=== PATIENT | female | born 1985 | race African-American/Black ===

== ENCOUNTER 2017-06-02 16:56 | Emergency (ER) | payer MEDICAID ==
[2017-06-02] MEDS ORDERED: ONDANSETRON HCL INJ/PF 4 MG/2 ML SDV IV ONE ×2 (17:08→17:16)
[2017-06-02] MEDS ORDERED: HYDROMORPHONE HCL INJ/PF 2 MG/ML AMPULE IV ONE ×3 (17:08→17:36)
[2017-06-02] MEDS ORDERED: HYDROMORPHONE HCL INJ/PF 2 MG/ML AMPULE ONE (17:12)
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
[2017-06-02] MEDS ORDERED: NORMAL SALINE 1000 ML 1,000 ML IV ONE (18:42)
[2017-06-02] MEDS ORDERED: FENTANYL 100 MCG/HR PATCH.TD72 TD ONE (18:44)
[2017-06-02] MEDS ORDERED: ONDANSETRON ODT 4 MG TAB (6 TAB/DSPK) PO PRN (21:07)
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
[2017-06-02 21:25] VITALS: BP 125/71
== END 2017-06-02 21:36 | disposition short-term general hospital (02) ==
LOC: ER 16:56
DX: T23.202A Burn of second degree of left hand, unspecified site, initial encounter (principal); T23.232A Burn of second degree of multiple left fingers (nail), not including thumb, initial encounter; T23.212A Burn of second degree of left thumb (nail), initial encounter; R11.0 Nausea; T31.11 Burns involving 10-19% of body surface with 10-19% third degree burns; X10.2XXA Contact with fats and cooking oils, initial encounter; Y93.G3 Activity, cooking and baking; Y92.000 Kitchen of unspecified non-institutional (private) residence as the place of occurrence of the external cause
CPT/HCPCS: 99285; 96374; 96375; 36415; 84703; J1170; J3490; J2405

== ENCOUNTER 2017-08-07 17:35 | Emergency (ER) | payer SELFPAY ==
--- NOTE | 2017-08-07 17:59 | ER Document Report ---
ED Medical Screen (RME) - General Chief Complaint: Abdominal Pain Stated Complaint: ABDOMINAL PAIN Time Seen by Provider: 08/07/17 17:55 Mode of Arrival: Ambulatory Information source: Patient Notes: 32 yo female c/o suprapubic abdominal pain onset saturday that has radiated into the right flank. No fever, n/v/d. No dysuria, but has frequency since saturday. No hematuria. No hx kidney stones. No vaginal discharge. No dyspareunia. Worse when supine, right side or prone. no hx endometriosis. Hx ovarian cyst. LMP : 06-01. Takes OC's, none missed. TRAVEL OUTSIDE OF THE [place] IN LAST 30 DAYS: No - Related Data Allergies/Adverse Reactions: codeine [Codeine] Allergy (Verified 08/07/17 17:35) VOMITING, rash Past Medical History - Past Medical History Cardiac Medical History: Denies: Hx Pulmonary Embolism Pulmonary Medical History: Reports: Hx Asthma - albuterol Denies: Hx Sleep Apnea, Hx Tuberculosis Renal/ Medical History: Denies: Hx Kidney Stones, Hx Ovarian Cysts, Hx Peritoneal Dialysis, Hx Pelvic Inflammatory Disease Malignancy Medical History: Denies: Hx Breast Cancer, Hx Cervical Cancer, Hx Ovarian Cancer GI Medical History: Reports: Hx Gastroesophageal Reflux Disease - with . Denies: Hx Hiatal Hernia, Hx Ulcer Past Surgical History: Reports: Hx Tonsillectomy - Immunizations Hx Diphtheria, Pertussis, Tetanus Vaccination: Yes Physical Exam - Vital signs Vitals: Temp Pulse Resp BP Pulse Ox 97.9 F 81 17 124/75 100 08/07/17 17:45 08/07/17 17:45 08/07/17 17:45 08/07/17 17:45 08/07/17 17:45 Course - Vital Signs Vital signs: Temp Pulse Resp BP Pulse Ox 97.9 F 81 17 124/75 100 08/07/17 17:45 08/07/17 17:45 08/07/17 17:45 08/07/17 17:45 08/07/17 17:45
[2017-08-07 19:00] LABS: APPEARANCE,URINE SLIGHTLY-CLOUDY; BILIRUBIN,URINE NEGATIVE (NEGATIVE); COLOR,URINE YELLOW; GLUCOSE, URINE NEGATIVE (NEGATIVE); KETONES,URINE NEGATIVE (NEGATIVE); LEUKOCYTE ESTERASE,URINE NEGATIVE (NEGATIVE); NITRITE,URINE NEGATIVE (NEGATIVE); PROTEIN,URINE NEGATIVE (NEGATIVE); URINE SPECIFIC GRAVITY 1.014; UROBILINOGEN,URINE NEGATIVE mg/dL (<2.0)
[2017-08-07 19:02] LABS: ABSOLUTE EOSINOPHILS # (AUTO) 0.1 10^3/uL (0.0-0.6); ABSOLUTE LYMPHOCYTES (AUTO) 3.6 10^3/uL (0.5-4.7); ABSOLUTE MONOCYTES (AUTO) 0.7 10^3/uL (0.1-1.4); ABSOLUTE NEUT (AUTO) 4.2 10^3/uL (1.7-8.2); BASOPHILS % (AUTO) 0.4 % (0-2); HEMATOCRIT 36.9 % (36.0-47.0); HEMOGLOBIN 12.3 g/dL (12.0-15.5); LYMPHOCYTES % (AUTO) 41.6 % (13-45); MEAN CORPUSCULAR HEMOGLOBIN 27.6 pg (27.0-33.4); MEAN CORPUSCULAR HGB CONC 33.2 g/dL (32.0-36.0); MEAN CORPUSCULAR VOLUME 83 fl (80-97); MONOCYTES % (AUTO) 8.1 % (3-13); PLATELET COUNT 286 10^3/uL (150-450); RED BLOOD COUNT 4.45 10^6/uL (3.72-5.28); RED CELL DISTRIBUTION WIDTH 13.3 % (11.5-14.0); SEGMENTED NEUTROPHILS % (AUTO) 48.9 % (42-78); TOTAL CELLS COUNTED % (AUTO) 100 %; WHITE BLOOD COUNT 8.6 10^3/uL (4.0-10.5)
[2017-08-07 19:07] LABS: ALANINE AMINOTRANSFERASE 20 U/L (9-52); ALBUMIN 3.9 g/dL (3.5-5.0); ALKALINE PHOSPHATASE 64 U/L (38-126); ANION GAP 8 (5-19); ASPARTATE AMINO TRANSFERASE 15 U/L (14-36); BILIRUBIN,DIRECT 0.2 mg/dL (0.0-0.4); BILIRUBIN,TOTAL 0.3 mg/dL (0.2-1.3); BLOOD UREA NITROGEN 15 mg/dL (7-20); CALCIUM 9.8 mg/dL (8.4-10.2); CARBON DIOXIDE 26 mmol/L (22-30); CHLORIDE 104 mmol/L (98-107); GLUCOSE 100 mg/dL (75-110); SODIUM 137.9 mmol/L (137-145); TOTAL PROTEIN 6.5 g/dL (6.3-8.2)
--- NOTE | 2017-08-07 21:24 | ER Document Report ---
ED General - General Chief Complaint: Abdominal Pain Stated Complaint: ABDOMINAL PAIN Time Seen by Provider: 08/07/17 17:55 Mode of Arrival: Ambulatory Notes: 32-year-old female in no acute distress presents to the emergency department with a worsening 3 day history of abdominal pain. Abdominal pain started around the umbilicus and now has migrated to the right lower quadrant. No nausea. No vomiting. No fever. No anorexia. No change in bowel patterns. Denies any vaginal discharge. No change in sexual partners. TRAVEL OUTSIDE OF THE [place] IN LAST 30 DAYS: No - HPI Onset: Other - 3 days ago Onset/Duration: Gradual Severity: Moderate Pain Level: 3 Associated symptoms: denies: Diarrhea, Nausea, Vomiting - Related Data Allergies/Adverse Reactions: codeine [Codeine] Allergy (Verified 08/07/17 17:35) VOMITING, rash Past Medical History - General Information source: Patient - Social History Smoking Status: Never Smoker Chew tobacco use (# tins/day): No Frequency of alcohol use: None Drug Abuse: None Lives with: Family Family History: Reviewed & Not Pertinent Patient has suicidal ideation: No Patient has homicidal ideation: No - Past Medical History Cardiac Medical History: Denies: Hx Pulmonary Embolism Pulmonary Medical History: Reports: Hx Asthma - albuterol Denies: Hx Sleep Apnea, Hx Tuberculosis Renal/ Medical History: Denies: Hx Kidney Stones, Hx Ovarian Cysts, Hx Peritoneal Dialysis, Hx Pelvic Inflammatory Disease Malignancy Medical History: Denies: Hx Breast Cancer, Hx Cervical Cancer, Hx Ovarian Cancer GI Medical History: Reports: Hx Gastroesophageal Reflux Disease - with . Denies: Hx Hiatal Hernia, Hx Ulcer Past Surgical History: Reports: Hx Tonsillectomy - Immunizations Hx Diphtheria, Pertussis, Tetanus Vaccination: Yes Hx Pneumococcal Vaccination: 04/23/13 Review of Systems - Review of Systems Constitutional: denies: Fever, Malaise, Weakness, Weight gain, Weight loss EENT: denies: Eye pain, Double vision, Nose congestion, Nose discharge Cardiovascular: denies: Chest pain, Palpitations, Heart racing, Syncope, Dizziness, Lightheaded Respiratory: denies: Cough, Short of breath, Sputum, Wheezing Gastrointestinal: Abdominal pain. denies: Diarrhea, Nausea, Vomiting Genitourinary: denies: Burning, Dysuria, Discharge, Frequency, Hematuria, Urgency Female Genitourinary: Last menstrual period - Last menstrual period was on 30 July Musculoskeletal: denies: Back pain, Joint pain, Muscle pain, Muscle stiffness Skin: denies: Change in color, Dryness, Lumps, Rash Hematologic/Lymphatic: denies: Anemia, Blood clots, Easy bleeding, Easy bruising Neurological/Psychological: No symptoms reported Physical Exam - Vital signs Vitals: Temp Pulse Resp BP Pulse Ox 97.9 F 81 17 124/75 100 08/07/17 17:45 08/07/17 17:45 08/07/17 17:45 08/07/17 17:45 08/07/17 17:45 Interpretation: Normal - General General appearance: Appears well, Alert - HEENT Head: Normocephalic, Atraumatic Eyes: Normal Pupils: PERRL - Respiratory Respiratory status: No respiratory distress Chest status: Nontender Breath sounds: Normal Chest palpation: Normal - Cardiovascular Rhythm: Regular Heart sounds: Normal auscultation Murmur: No - Abdominal Inspection: Normal Distension: No distension Bowel sounds: Normal Tenderness: Tender - Tenderness to palpation right lower quadrant. No rebound Organomegaly: No organomegaly - Back Back: Normal, Nontender - Extremities General upper extremity: Normal inspection, Nontender, Normal color, Normal ROM , Normal temperature General lower extremity: Normal inspection, Nontender, Normal color, Normal ROM , Normal temperature, Normal weight bearing. No: Alejandra's sign - Neurological Neuro grossly intact: Yes Cognition: Normal Orientation: AAOx4 Stan[place] Coma Scale Eye Opening: Spontaneous [place] Coma Scale Verbal: Oriented [place] Coma Scale Motor: Obeys Commands Stanfield Coma Scale Total: 15 Speech: Normal Motor strength normal: LUE, RUE, LLE, RLE Sensory: Normal - Psychological Associated symptoms: Normal affect, Normal mood - Skin Skin Temperature: Warm Skin Moisture: Dry Skin Color: Normal Course - Re-evaluation Re-evalutation: 08/07/17 22:13 Due to the fact the patient has had a migratory right lower quadrant pain beginning at the umbilicus will do CT scan to rule out appendicitis at this time. Patient is not requesting anything for pain. 08/07/17 23:09 CT scan is complete. Patient not getting ultrasound. Patient still resting comfortably in no significant distress. 08/08/17 00:10 Laboratory 08/07/17 08/07/17 08/07/17 18:34 18:34 18:34 WBC 8.6 RBC 4.45 Hgb 12.3 Hct 36.9 MCV 83 MCH 27.6 MCHC 33.2 RDW 13.3 Plt Count 286 Seg Neutrophils % 48.9 Lymphocytes % 41.6 Monocytes % 8.1 Eosinophils % 1.0 Basophils % 0.4 Absolute Neutrophils 4.2 Absolute Lymphocytes 3.6 Absolute Monocytes 0.7 Absolute Eosinophils 0.1 Absolute Basophils 0.0 Sodium 137.9 Potassium 4.0 Chloride 104 Carbon Dioxide 26 Anion Gap 8 BUN 15 Creatinine 0.68 Est GFR ( Amer) > 60 Est GFR (Non-Af Amer) > 60 Glucose 100 Calcium 9.8 Total Bilirubin 0.3 Direct Bilirubin 0.2 Neonat Total Bilirubin Not Reportable Neonat Direct Bilirubin Not Reportable Neonat Indirect Bili Not Reportable AST 15 ALT 20 Alkaline Phosphatase 64 Total Protein 6.5 Albumin 3.9 Urine Color YELLOW Urine Appearance SLIGHTLY-CLOUDY Urine pH 6.0 Ur Specific Hope 1.014 Urine Protein NEGATIVE Urine Glucose (UA) NEGATIVE Urine Ketones NEGATIVE Urine Blood MODERATE H Urine Nitrite NEGATIVE Urine Bilirubin NEGATIVE Urine Urobilinogen NEGATIVE Ur Leukocyte Esterase NEGATIVE Urine RBC (Auto) 9 Squamous Epi Cells Auto 3 Urine Mucus (Auto) RARE Urine Ascorbic Acid NEGATIVE Urine HCG, Qual NEGATIVE Abdomen/Pelvis CT 08/07/17 00:00 IMPRESSION: Normal appendix. Proliferative appearance of the endometrium. 1.6 cm right ovarian cyst. Trace pelvic free fluid. Multiple left renal upper pole calyceal stones. No ureteral stone. No hydronephrosis or hydroureter. Transvaginal US 08/07/17 22:38 IMPRESSION: 2.2 cm right ovarian cyst with small adjacent free fluid. The skin with a normal appendix. Patient has a 2.2 cm right ovarian cyst with a small amount of adjacent free fluid but with no evidence of torsion. Patient is actually very comfortable at this time. Will advise that she follow up with a [facility]. Follow-up information provided. Return if symptoms get worse. - Vital Signs Vital signs: Temp Pulse Resp BP Pulse Ox 97.9 F 81 17 124/75 100 08/07/17 17:45 08/07/17 17:45 08/07/17 17:45 08/07/17 17:45 08/07/17 17:45 - Laboratory Result Diagrams: 08/07/17 18:34 08/07/17 18:34 Laboratory results interpreted by me: 08/07/17 18:34 Urine Blood MODERATE H Discharge - Discharge Clinical Impression: Right ovarian cyst Condition: Good Disposition: HOME, SELF-CARE Instructions: Abdominal Pain ([facility]), Ovarian Cyst ([facility]) Additional Instructions: Symptoms are getting worse or no better in the next 24 hours please return for repeat evaluation or follow-up with your regular doctor. Prescriptions: Ibuprofen [Motrin 600 Mg Tablet] 600 mg PO TID 5 Days #15 tablet Referrals: MARIELLA FERNÁNDEZ MD [Primary Care Provider] - Follow up as needed
[2017-08-07] MEDS ORDERED: KETOROLAC TROMETHAMINE INJ/PF 30 MG/1 ML SDV IV ONE (23:50)
--- NOTE | 2017-08-07 23:52 | RADIOLOGY REPORT (SQ) ---
EXAM DESCRIPTION: CT ABD/PELVIS WITH IV ORAL COMPLETED DATE/TIME: 08/07/2017 11:03 pm REASON FOR STUDY: RLQ pain COMPARISON: None. TECHNIQUE: CT scan of the abdomen and pelvis performed using helical scanning technique with dynamic intravenous contrast injection. No oral contrast. Images reviewed with lung, soft tissue, and bone windows. Reconstructed coronal and sagittal MPR images reviewed. Delayed images for evaluation of the urinary system also acquired. All images stored on PACS. All CT scanners at this facility use dose modulation, iterative reconstruction, and/or weight based d osing when appropriate to reduce radiation dose to as low as reasonably achievable (ALARA). [facility]: Dose Right [facility]: CareDose [facility]: Dose Right [facility]: Teradose 4D [facility]: YouHelp CONTRAST TYPE AND DOSE: contrast/concentration: Isovue 370.00 mg/ml; Total Contrast Delivered: 100.0 ml; Total Saline Delivered: 40.0 ml RENAL FUNCTION: None required. The patient is less than 50 years old. RADIATION DOSE: CT Rad equipment meets quality standard of care and radiation dose reduction techniq ues were employed. CTDIvol: 19.5 - 19.5 mGy. DLP: 2148 mGy-cm.. LIMITATIONS: None. FINDINGS: LOWER CHEST: No significant findings. No nodules or infiltrates. LIVER: Normal size. No masses. No dilated ducts. SPLEEN: Normal size. No focal lesions. PANCREAS: No masses. No significant calcifications. No adjacent inflammation or peripancreatic fluid collections. Pancreatic duct not dilated. GALLBLADDER: No identified stones by CT criteria. No inflammatory changes to suggest cholecystitis. ADRENAL GLANDS: No significant masses or asymmetry. RIGHT KIDNEY AND URETER: No solid masses. No significant calcifications. No hydronephrosis or hyd roureter. LEFT KIDNEY AND URETER: No solid masses. Multiple left upper pole calyceal stones. No ureteral sto ne. No hydronephrosis or hydroureter. AORTA AND VESSELS: No aneurysm. No dissection. Renal arteries, SMA, celiac without stenosis. RETROPERITONEUM: No retroperitoneal adenopathy, hemorrhage or masses. BOWEL AND PERITONEAL CAVITY: No masses or inflammatory changes. No free fluid or peritoneal masses. APPENDIX: Normal. PELVIS: Proliferative appearance of the endometrium. 1.6 cm right ovarian cyst. Trace pelvic free f luid. Normal bladder. ABDOMINAL WALL: No masses. No hernias. BONES: No significant or acute findings. OTHER: No other significant finding. IMPRESSION: Normal appendix. Proliferative appearance of the endometrium. 1.6 cm right ovarian cys t. Trace pelvic free fluid. Multiple left renal upper pole calyceal stones. No ureteral stone. No hydronephrosis or hydroureter. TECHNICAL DOCUMENTATION: JOB ID: [id number] [place]-72 Quality ID # [id number]: Final reports with documentation of one or more dose reduction techniques (e.g., Au tomated exposure control, adjustment of the mA and/or kV according to patient size, use of iterative reconstruction technique) 2010 [employer]- All Rights Reserved
--- NOTE | 2017-08-07 23:59 | RADIOLOGY REPORT (SQ) ---
EXAM DESCRIPTION: U/S NON OB PEL TV W/DOPPLER COMPLETED DATE/TIME: 08/07/2017 11:30 pm REASON FOR STUDY: rlq pain COMPARISON: None. TECHNIQUE: Dynamic and static grayscale images acquired of the pelvis via transvaginal approach and recorded on PACS. Additional selected color Doppler and spectral images recorded. LIMITATIONS: None. FINDINGS: UTERUS: Contour normal. 1 cm right lower body fibroid. ENDOMETRIAL STRIPE: No focal or generalized thickening. No masses. CERVIX: No nabothian cysts. RIGHT OVARY: 2.2 cm right ovarian cyst with small adjacent free fluid. RIGHT OVARY DOPPLER: Normal arterial vascular flow without evidence for torsion. LEFT OVARY: No abnormal masses. LEFT OVARY DOPPLER: Normal arterial vascular flow without evidence for torsion. FREE FLUID: None noted. OTHER: No other significant finding. MEASUREMENTS: UTERUS: 8.5 x 6.5 x 5.2 cm ENDOMETRIAL STRIPE: 10 mm RIGHT OVARY: 3.5 x 2.3 x 1.8 cm LEFT OVARY: 2.8 x 2.2 x 1.6 cm IMPRESSION: 2.2 cm right ovarian cyst with small adjacent free fluid. TECHNICAL DOCUMENTATION: JOB ID: [id number] [place]-72 2010 [employer]- All Rights Reserved
[2017-08-08 00:37] VITALS: BP 125/78
== END 2017-08-08 00:32 | disposition home or self-care (01) ==
LOC: ER 17:35
DX: N83.201 Unspecified ovarian cyst, right side (principal); N20.0 Calculus of kidney; R10.31 Right lower quadrant pain; Z88.5 Allergy status to narcotic agent; J45.909 Unspecified asthma, uncomplicated
CPT/HCPCS: 99284; 96374; 36415; 87086; 85025; 81025; 87088; 80053; 81001; 76830; 93976; 74177; J1885

== ENCOUNTER 2019-05-06 22:23 | Emergency (ER) | payer OTHER ==
[2019-05-06 22:35] VITALS: BP 128/79
[2019-05-06] MEDS ORDERED: IBUPROFEN 800 MG TABLET PO ONE (23:06)
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
--- NOTE | 2019-05-06 23:47 | RADIOLOGY REPORT (SQ) ---
EXAM DESCRIPTION: XR WRIST 3 OR MORE VIEWS, XR HAND 3 OR MORE VIEWS CLINICAL INDICATION: 34-year-old female with pain without injury. TECHNIQUE: Three views LEFT hand were obtained in AP, lateral and oblique projections. Three views LEFT wrist were obtained in AP, lateral and oblique projections. COMPARISON: None. FINDINGS: LEFT hand: There is no fracture or dislocation. The joint spaces are preserved. No soft tissue abnormalities are seen. LEFT wrist: There is no fracture or dislocation. The joint spaces are preserved. No soft tissue abnormalities are seen. IMPRESSION: No acute radiographic abnormality.
[2019-05-07] MEDS ORDERED: OXYCODONE-ACETAMINOPHEN 5-325 MG TABLET PO ONE (01:45)
--- NOTE | 2019-05-07 01:51 | ER Document Report ---
ED General - General Chief Complaint: Hand Pain Stated Complaint: LEFT HAND/SHOULDER PAIN Time Seen by Provider: 05/06/19 23:06 Primary Care Provider: MARIELLA FERNÁNDEZ MD [Primary Care Provider] - Follow up as needed Mode of Arrival: Ambulatory TRAVEL OUTSIDE OF THE [place] IN LAST 30 DAYS: No - HPI Notes: Patient is a 32-year-old female who presents emergency department for evaluation of pain in her left hand and wrist. Started yesterday. Is progressed up to now where it hurts all the way up into her shoulder and neck. She denies any associated shortness of breath, nausea, diaphoresis, near syncope. Is worsened by movement, nothing seems to make it better. She states she is just here because she was concerned she could be having a heart attack. She states that she noted that her fingertips on the index and middle fingers yesterday went numb, but they have not been that way since. - Related Data Allergies/Adverse Reactions: codeine [Codeine] Allergy (Verified 05/06/19 23:03) VOMITING, rash Past Medical History - General Information source: Patient - Social History Smoking Status: Never Smoker Frequency of alcohol use: Rare Drug Abuse: None Family History: Reviewed & Not Pertinent Patient has suicidal ideation: No Patient has homicidal ideation: No - Past Medical History Cardiac Medical History: Denies: Hx Pulmonary Embolism Pulmonary Medical History: Reports: Hx Asthma - albuterol Denies: Hx Sleep Apnea, Hx Tuberculosis Renal/ Medical History: Denies: Hx Kidney Stones, Hx Ovarian Cysts, Hx Peritoneal Dialysis, Hx Pelvic Inflammatory Disease Malignancy Medical History: Denies: Hx Breast Cancer, Hx Cervical Cancer, Hx Ovarian Cancer GI Medical History: Reports: Hx Gastroesophageal Reflux Disease - with p regnancy. Denies: Hx Hiatal Hernia, Hx Ulcer Past Surgical History: Reports: Hx Section, Hx Tonsillectomy, Other - Skin graft left hand - Immunizations Hx Diphtheria, Pertussis, Tetanus Vaccination: Yes Hx Pneumococcal Vaccination: 04/23/13 Review of Systems - Review of Systems Constitutional: No symptoms reported EENT: No symptoms reported Cardiovascular: No symptoms reported Respiratory: No symptoms reported Gastrointestinal: No symptoms reported Genitourinary: No symptoms reported Musculoskeletal: See HPI Skin: No symptoms reported Neurological/Psychological: No symptoms reported Physical Exam - Vital signs Vitals: Temp Pulse Resp BP Pulse Ox 97.7 F 92 18 128/79 H 100 10/23/19 22:34 05/06/19 22:34 05/06/19 22:34 05/06/19 22:34 05/06/19 22:34 - Notes Notes: Vital signs reviewed, please refer to chart. Head is normocephalic, atraumatic. Pupils equal round, reactive to light. Neck is supple without meningismus. Heart is regular rate and rhythm. Lungs are clear to auscultation bilaterally. Abdomen is soft, nontender, normoactive bowel sounds throughout. Extremities without cyanosis, clubbing. Posterior calves are nontender. Peripheral pulses are equal. Examination of the left upper extremity yields no obvious deformity. She has skin graft, well-healed, in place over the radial aspect of the dorsum of the hand. She has full range of motion of all 4 fingers and thumb, although significant opposition of the thumb causes significant pain. She also has significant pain with flexion of the wrist against resistance. No bony tenderness at the anatomical snuffbox, no tenderness to the radius or ulna Course - Re-evaluation Re-evalutation: 05/07/19 01:48 Patient presents emergency department for evaluation. She has pain in her left hand and wrist that radiates up into her shoulder. It is reproducible. Is worsened by movement. This is musculoskeletal in nature, I strongly suspect a tendinitis. She was placed in a cock-up splint, was neurovascularly intact following. Administered ibuprofen and Percocet here. We will send her home with prescription strength anti-inflammatories and close follow-up. She is to return to the ED with worsening. - Vital Signs Vital signs: Temp Pulse Resp BP Pulse Ox 97.7 F 92 18 128/79 H 100 05/06/19 22:34 05/06/19 22:34 05/06/19 22:34 05/06/19 22:34 05/06/19 22:34 - Diagnostic Test Radiology reviewed: Image reviewed, Reports reviewed Radiology results interpreted by me: 05/07/19 01:48 Hand X-Ray 05/06/19 23:06 IMPRESSION: No acute radiographic abnormality. Wrist X-Ray 05/06/19 23:06 IMPRESSION: No acute radiographic abnormality. Discharge - Discharge Clinical Impression: Tendinitis of left wrist Condition: Stable Disposition: HOME, SELF-CARE Instructions: Tendonitis ([facility]) Additional Instructions: Take medication as prescribed, preferably with food. Use Velcro wrist print for comfort. Follow-up with your primary care provider next week. Return to the emergency department with worsening or new concerning symptoms of any sort. Referrals: MARIELLA FERNÁNDEZ MD [Primary Care Provider] - Follow up as needed
== END 2019-05-07 02:32 | disposition home or self-care (01) ==
LOC: ER 22:23
DX: M77.9 Enthesopathy, unspecified (principal); M79.642 Pain in left hand; M25.532 Pain in left wrist; M54.2 Cervicalgia; Z88.5 Allergy status to narcotic agent; J45.909 Unspecified asthma, uncomplicated
CPT/HCPCS: 99283; 73130; 73110; L3908